=== PATIENT | female | born 1980 | race Caucasian/White ===

== ENCOUNTER 2017-11-12 12:29 | Emergency (ER) | payer BC ==
[~2017-11-12] VITALS: Ht 162.6 cm; Wt 104.3 kg
[2017-11-12] MEDS ORDERED: EFFEXOR XR37.5 MG PO (12:43)
[2017-11-12] MEDS ORDERED: NEURONTIN100 MG PO (12:44)
[2017-11-12] MEDS ORDERED: ATIVAN0.5 MG PO (12:44)
[2017-11-12 12:52] LABS: URINE BILIRUBIN NEGATIVE (Negative); URINE BLOOD NEGATIVE (Negative); URINE CLARITY CLEAR; URINE COLOR YELLOW; URINE GLUCOSE-RANDOM NEGATIVE (Negative); URINE KETONES NEGATIVE (Negative); URINE LEUKOCYTES-REFLEX NEGATIVE (Negative); URINE NITRITE-REFLEX NEGATIVE (Negative); URINE PROTEIN NEGATIVE (Negative); URINE SPECIFIC GRAVITY 1.015 (1.005-1.030); URINE UROBILINOGEN 0.2 E.U./dl (0.2-1.0)
[2017-11-12 12:59] LABS: AMP/METHAMP Negative (Negative); BARBITURATES Negative (Negative); BENZODIAZEPINES Negative (Negative); COCAINE Negative (Negative); METHADONE Negative (Negative); OPIATES Negative (Negative); PCP Negative (Negative); THC Negative (Negative)
[2017-11-12 13:09] LABS: ABSOLUTE BASOPHILS 0.1 thou/uL (0.0-0.2); ABSOLUTE EOSINOPHILS 0.2 thou/uL (0.0-0.7); ABSOLUTE LYMPHOCYTES 2.2 thou/uL (0.8-5.3); ABSOLUTE MONOCYTES 0.4 thou/uL (0.0-1.2); ABSOLUTE NEUTROPHILS 4.7 thou/uL (1.6-8.1); BASOPHILS 1.3 %; EOSINOPHILS 3.2 %; HEMATOCRIT 40.6 % (37.0-47.0); HEMOGLOBIN 13.3 gm/dL (12.0-15.0); MCH 29.8 pg (26.0-34.0); MCHC 32.8 g/dL (28.0-37.0); MCV 90.7 fL (80.0-100.0); MONOCYTES 5.6 %; MPV 9.2 fl. (7.2-11.1); NUCLEATED RBCS 0 /100WBC; PLATELET COUNT* 274 thou/uL (150-400); POLYS 60.9 %; RBC 4.47 mil/uL (4.20-5.00); RDW-CV 13.5 % (10.5-14.5); WBC 7.7 thou/uL (4.0-11.0)
[2017-11-12 13:15] LABS: CALCIUM 7.9 mg/dL (8.5-10.1); CREATININE 0.6 mg/dL (0.6-1.3); POTASSIUM 3.8 mmol/L (3.5-5.1)
[2017-11-12 13:20] LABS: ALBUMIN 3.3 g/dL (3.4-5.0); TOTAL BILIRUBIN 0.3 mg/dL (<0.1-1.0); TOTAL PROTEIN 6.8 g/dL (6.4-8.2)
[2017-11-12 13:23] LABS: ALCOHOL 12 mg/dL (<10); SALICYLATE 4.3 mg/dL (2.8-20.0)
[2017-11-12 13:24] LABS: ACETAMINOPHEN < 2 ug/mL (10-30)
[2017-11-12 15:52] VITALS: BP 131/72
== END 2017-11-12 15:53 | disposition home or self-care (01) ==
LOC: M.ERS 12:29
PROVIDERS: Emergency Medicine Emergency Medical Services
DX: F32.9 Major depressive disorder, single episode, unspecified (principal); F41.9 Anxiety disorder, unspecified; F17.210 Nicotine dependence, cigarettes, uncomplicated; Z88.5 Allergy status to narcotic agent

== ENCOUNTER 2018-02-06 09:01 | Emergency (ER) | payer BC ==
[~2018-02-06] VITALS: Ht 162.6 cm; Wt 99.8 kg
[~2018-02-06 09:01] MED LIST: ATIVAN0.5 MG PO; EFFEXOR XR37.5 MG PO; NEURONTIN100 MG PO
[2018-02-06] MEDS ORDERED: NAPROSYN500 MG PO (09:18)
[2018-02-06 09:44] LABS: ABSOLUTE BASOPHILS 0.1 thou/uL (0.0-0.2); ABSOLUTE EOSINOPHILS 0.3 thou/uL (0.0-0.7); ABSOLUTE LYMPHOCYTES 1.9 thou/uL (0.8-5.3); ABSOLUTE MONOCYTES 0.6 thou/uL (0.0-1.2); ABSOLUTE NEUTROPHILS 6.4 thou/uL (1.6-8.1); BASOPHILS 0.6 %; EOSINOPHILS 3.1 %; HEMATOCRIT 42.2 % (37.0-47.0); HEMOGLOBIN 14.1 gm/dL (12.0-15.0); LYMPHOCYTES 20.6 %; MCH 30.4 pg (26.0-34.0); MCHC 33.4 g/dL (28.0-37.0); MCV 90.9 fL (80.0-100.0); MONOCYTES 6.9 %; MPV 9.1 fl. (7.2-11.1); NUCLEATED RBCS 0 /100WBC; PLATELET COUNT* 280 thou/uL (150-400); POLYS 68.8 %; RBC 4.65 mil/uL (4.20-5.00); RDW-CV 13.7 % (10.5-14.5); WBC 9.3 thou/uL (4.0-11.0)
[2018-02-06 09:47] LABS: URINE BILIRUBIN NEGATIVE (Negative); URINE BLOOD NEGATIVE (Negative); URINE CLARITY CLEAR; URINE COLOR YELLOW; URINE GLUCOSE-RANDOM NEGATIVE (Negative); URINE KETONES NEGATIVE (Negative); URINE LEUKOCYTES-REFLEX NEGATIVE (Negative); URINE NITRITE-REFLEX NEGATIVE (Negative); URINE PROTEIN NEGATIVE (Negative); URINE SPECIFIC GRAVITY <= 1.005 (1.005-1.030); URINE UROBILINOGEN 0.2 E.U./dl (0.2-1.0)
[2018-02-06 09:49] LABS: CALCIUM 8.4 mg/dL (8.5-10.1); CREATININE 0.7 mg/dL (0.6-1.3)
[2018-02-06 09:53] LABS: ALBUMIN 3.8 g/dL (3.4-5.0); TOTAL BILIRUBIN 0.2 mg/dL (<0.1-1.0); TOTAL PROTEIN 7.7 g/dL (6.4-8.2)
[2018-02-06] MEDS ORDERED: ZOFRAN ODT4 MG SUBLING (11:06)
[2018-02-06] MEDS ORDERED: CIPROFLOXACIN500 M1 PO (11:06)
[2018-02-06] MEDS ORDERED: PREDNISONE 20 M20 M1 PO (11:06)
[2018-02-06] MEDS ORDERED: FLAGYL500 MG PO (11:06)
[2018-02-06 11:28] VITALS: BP 138/96
== END 2018-02-06 11:30 | disposition home or self-care (01) ==
LOC: M.ERS 09:01
PROVIDERS: Family Medicine
DX: K52.9 Noninfective gastroenteritis and colitis, unspecified (principal); F41.9 Anxiety disorder, unspecified; F32.9 Major depressive disorder, single episode, unspecified; F17.210 Nicotine dependence, cigarettes, uncomplicated; Z90.49 Acquired absence of other specified parts of digestive tract; Z88.5 Allergy status to narcotic agent

== ENCOUNTER 2018-02-07 20:01 | Inpatient (IN) | payer BC ==
[~2018-02-07] VITALS: Ht 162.6 cm; Wt 109.3 kg
--- NOTE | ~2018-02-07 | PROC ---
[address] [address] PROCEDURE REPORT Name: GEORGINA VALDES Room: [address] IN M.R.#: [id number] Admission: 02/07/18 Attend Phys: Michael Bell MD Discharge: 02/09/18 Date of : 82 Report #: [id number] THIS REPORT FOR: //name// For GI report, please see the Provation report in [employer] 7 content. By: [id number] Records Staff DIONNA /NISHANT
[~2018-02-07 20:01] MED LIST changes: +CIPROFLOXACIN500 M1 PO; +FLAGYL500 MG PO; +NAPROSYN500 MG PO; +PREDNISONE 20 M20 M1 PO; +ZOFRAN ODT4 MG SUBLING
[2018-02-07 20:03] VITALS: BP 172/105
[2018-02-07 21:24] LABS: HEMATOCRIT 40.9 % (37.0-47.0); HEMOGLOBIN 13.6 gm/dL (12.0-15.0); MCH 29.9 pg (26.0-34.0); MCHC 33.2 g/dL (28.0-37.0); NUCLEATED RBCS 0 /100WBC; PLATELET COUNT* 324 thou/uL (150-400); RBC 4.55 mil/uL (4.20-5.00); RDW-CV 13.3 % (10.5-14.5); WBC 12.5 thou/uL (4.0-11.0)
[2018-02-07 21:31] LABS: CALCIUM 8.6 mg/dL (8.5-10.1); CREATININE 0.9 mg/dL (0.6-1.3); POTASSIUM 3.9 mmol/L (3.5-5.1)
[2018-02-07 21:35] LABS: ALBUMIN 3.5 g/dL (3.4-5.0); TOTAL BILIRUBIN 0.2 mg/dL (<0.1-1.0); TOTAL PROTEIN 7.7 g/dL (6.4-8.2)
[2018-02-07 21:50] LABS: ABSOLUTE LYMPHOCYTES 1.8 thou/uL (0.8-5.3); ABSOLUTE MONOCYTES 0.4 thou/uL (0.0-1.2); ABSOLUTE NEUTROPHILS 10.4 thou/uL (1.6-8.1); PLATELET ESTIMATE ADEQUATE
[2018-02-08 01:30] VITALS: BP 152/84
[2018-02-08 02:05] VITALS: BP 137/88
[2018-02-08 08:45] VITALS: BP 149/79
[2018-02-08 10:12] LABS: ABSOLUTE BASOPHILS 0.1 thou/uL (0.0-0.2); ABSOLUTE EOSINOPHILS 0.2 thou/uL (0.0-0.7); ABSOLUTE LYMPHOCYTES 2.6 thou/uL (0.8-5.3); ABSOLUTE MONOCYTES 0.9 thou/uL (0.0-1.2); ABSOLUTE NEUTROPHILS 6.3 thou/uL (1.6-8.1); BASOPHILS 0.8 %; EOSINOPHILS 2.4 %; HEMATOCRIT 37.6 % (37.0-47.0); HEMOGLOBIN 12.2 gm/dL (12.0-15.0); LYMPHOCYTES 25.8 %; MCH 29.7 pg (26.0-34.0); MCHC 32.6 g/dL (28.0-37.0); MCV 91.3 fL (80.0-100.0); MONOCYTES 8.7 %; MPV 9.3 fl. (7.2-11.1); NUCLEATED RBCS 0 /100WBC; PLATELET COUNT* 279 thou/uL (150-400); POLYS 62.3 %; RBC 4.12 mil/uL (4.20-5.00); RDW-CV 13.5 % (10.5-14.5); WBC 10.1 thou/uL (4.0-11.0)
[2018-02-08 10:17] LABS: CALCIUM 7.9 mg/dL (8.5-10.1); CREATININE 0.8 mg/dL (0.6-1.3); MAGNESIUM 1.8 mg/dL (1.8-2.4); POTASSIUM 3.7 mmol/L (3.5-5.1)
[2018-02-08 15:35] VITALS: BP 154/89
[2018-02-08 21:15] VITALS: BP 149/91
[2018-02-09 00:16] VITALS: BP 125/81
[2018-02-09 04:32] LABS: HEMATOCRIT 36.1 % (37.0-47.0); HEMOGLOBIN 11.8 gm/dL (12.0-15.0); MCH 30.2 pg (26.0-34.0); MCHC 32.9 g/dL (28.0-37.0); MCV 91.9 fL (80.0-100.0); MPV 9.5 fl. (7.2-11.1); RBC 3.92 mil/uL (4.20-5.00); RDW-CV 13.8 % (10.5-14.5); WBC 7.8 thou/uL (4.0-11.0)
[2018-02-09 04:58] LABS: ALBUMIN 2.8 g/dL (3.4-5.0); CALCIUM 7.4 mg/dL (8.5-10.1); CREATININE 0.7 mg/dL (0.6-1.3); MAGNESIUM 1.9 mg/dL (1.8-2.4); POTASSIUM 4.2 mmol/L (3.5-5.1); TOTAL BILIRUBIN 0.3 mg/dL (<0.1-1.0)
[2018-02-09 07:45] VITALS: BP 134/70
[2018-02-09 08:05] VITALS: BP 125/81; BP 141/85
[2018-02-09 15:20] VITALS: BP 141/85
[2018-02-09 15:22] VITALS: BP 141/85
[2018-02-09 18:58] VITALS: BP 141/85
--- NOTE | 2018-02-13 11:10 | PATH ---
[address] [address] PATHOLOGY RPT PROCEDURE Name: CARLA VALDES Room: [address] IN M.R.#: [id number] Admission: 02/07/18 Date of : 82 Discharge: 02/09/18 Report #: [id number] Path Case #: [id number] [facility] Accession Number: [id number] . 01 Material submitted: . PART A: ASCENDING COLON PART B: TRANSVERSE COLON PART C: DESCENDING COLON . 01 Clinical history: . None provided . 02 Diagnosis: A. Ascending colon biopsy: - Minimal active colitis, negative for granulomas, viral inclusions and dysplasia. See comment. . B. Transverse colon biopsy: - Benign colonic mucosa with hyperplastic lymphoid follicle (Peyer's patch) and mild non-specific lymphoplasmacytic infiltrate, negative for cryptitis, granulomas and dysplasia. . C. Descending colon biopsy: - Minimal active colitis and hyperplastic lymphoid follicle (Peyer's patch), negative for granulomas, viral inclusions and dysplasia. See comment. LB/02/12/2018 . 02 Comment: All three of the colonic mucosal biopsies show a mild to modest increase of lymphoplasmacytic infiltrate in the lamina propria without significant basal lymphoplasmacytosis and with no crypt distortion to elevate a concern for inflammatory bowel disease. In the ascending and descending colon biopsies (A and C) there is minimal active inflammation evidenced by spotty cryptitis and a few neutrophils in the lamina propria, findings which could be attributable to oral sodium phosphate prep or use of non-steroidal anti-inflammatory agents. There is no significant intraepithelial lymphocytosis or thickening of the subluminal collagen plate to quality for lymphocytic (microscopic) or collagenous colitis. (CAROL/db; 02/12/18) . 02 Electronically signed: . Abdi Estrada MD, Pathologist NPI- [id number] . 01 Gross description: . A. Received in formalin labeled "Carla Valdes, ascending colon BX," is a single segment of hale soft tissue measuring 0.5 [place] [address] PATHOLOGY RPT PROCEDURE Name: CARLA VALDES Room: [address] IN M.R.#: [id number] Admission: 02/07/18 Date of : 82 Discharge: 02/09/18 Report #: [id number] Path Case #: [id number] The specimen is entirely submitted in cassette A1. . B. Received in formalin labeled "Magers, Carla, transverse colon BX," are 2 segments of hale soft tissue measuring 0.8 x 0.2 x 0.2 cm in aggregate dimensions and ranging from 0.3 to 0.5 cm in maximum dimension. The specimen is submitted entirely in cassette B1. . C. Received in formalin labeled "Magers, Carla, descending colon BX," are 2 segments of hale soft tissue measuring 0.7 x 0.2 x 0.1 cm in aggregate dimensions and ranging from 0.3 to 0.4 cm in maximum dimension. The specimen is submitted entirely in cassette C1. (TSD; 02/09/2018) TOB/TOB . 02 Pathologist provided ICD-10: K52.9 . 02 CPT . 412798, 818398, 223485 Specimen Comment: A courtesy copy of this report has been sent to Specimen Comment: [phone], . Specimen Comment: Report sent to / DR ARROYO Performed at: [address], [place] [id number] MD Vinnie Rojas MD Phone: [phone] Performed at: 02 [facility] [address], [place], [place] [id number] MD Abdi Estrada MD Phone: [phone]
--- NOTE | 2018-02-22 13:22 | CON ---
[address] [address] CONSULTATION Name: GEORGINA VALDES Room: [address] IN .R.#: [id number] Admission: 02/07/18 Attend Phys: Michael Bell MD Discharge: 02/09/18 Date of : 82 Report #: [id number] THIS REPORT FOR: //name// CC: Michael Bell [facility] physician/PCP DATE OF SERVICE: 02/08/2018 HISTORY OF PRESENT ILLNESS: This is a pleasant 37-year-old female with no significant past medical history, is presenting with abdominal pain and bloody diarrhea. The patient reports that the symptoms began 3 days back, at which time, she presented to the ER. At that time, she was given some IV fluids, steroids, and broad-spectrum antibiotics and discharged. The patient went back to work and noticed that the pain did not improve and as a matter of fact began worsening. At that time, she presented to the ER again. The patient reports that the symptoms began with lower abdominal pain. The pain was stabbing and sharp in nature and severe in intensity. This was followed by several episodes of bloody diarrhea. The pain then progressed to involve the right lower part of the abdomen with the same symptoms. The patient reports taking NSAIDs daily for the last month. She denies oral contraceptive use. She denies similar episodes in the past. PAST MEDICAL HISTORY: None significant. PAST SURGICAL HISTORY: None significant. FAMILY HISTORY: No family history of colorectal cancer. SOCIAL HISTORY: The patient denies smoking, alcohol or recreational drug use. REVIEW OF SYSTEMS: A comprehensive 10-point review of systems is negative except for what was mentioned in the HPI. PHYSICAL EXAMINATION: VITAL SIGNS: Temperature 36.4, pulse rate 68, respirations 16, blood pressure 154/ pulse ox 98% on room air. GENERAL: The patient is alert, awake, oriented x 3. Mucous membranes are moist. There is no congestion. HEENT: Pupils are equal, round, reactive to light and accommodation. NECK: Supple. There is no supraclavicular lymphadenopathy. LUNGS: Clear to auscultation. CARDIOVASCULAR: Rate and rhythm regular. S1, S2 present. ABDOMEN: Soft. There is tenderness in right lower quadrant suprapubic area, left lower quadrant and also in the epigastric region. There are no guarding or peritoneal signs. Bowel sounds are present. EXTREMITIES: Warm, well perfused[place] [address] CONSULTATION Name: GEORGINA VALDES Room: [address]#: [id number] Admission: 02/07/18 Attend Phys: Michael Bell MD Discharge: 02/09/18 Date of : 82 Report #: [id number] NEUROLOGIC: There is no focal neurological deficit. SKIN: Warm and dry. LABORATORY DATA: WBC count 12.5, hemoglobin 13.6, hematocrit 40.9, platelet count 324. Sodium 139, potassium 3.7, chloride 107, bicarbonate 25, BUN 16, creatinine 0.8. CT abdomen and pelvis, mild colitis involving ascending and transverse colon. Distal colon is not involved. ASSESSMENT AND PLAN: A 37-year-old female presenting with abdominal pain and bloody diarrhea for the last 3 days. Leading differential diagnoses include infectious, ischemic or inflammatory colitis. Clostridium difficile testing is pending. We will proceed with endoscopic evaluation tomorrow for diagnosis. Further recommendations based on above. I agree with broad-spectrum antibiotic coverage and IV fluids at this time. <ELECTRONICALLY SIGNED> By: Geovany Rain MD 02/22/18 1322 1630 10Geovany Rain MD /nt
== END 2018-02-09 15:45 | disposition home or self-care (01) | DRG 378 ==
LOC: M.ERS 20:01 → M.TBA-ER 22:51 → M.ORTHSURG 22:51
PROVIDERS: Internal Medicine; Nurse Practitioner Family; ADMIT Internal Medicine
PROC: 0DBL8ZX Excision of Transverse Colon, Via Natural or Artificial Opening Endoscopic, Diagnostic (ICD-10-PCS; principal; 2018-02-09)
PROC: 0DBK8ZX Excision of Ascending Colon, Via Natural or Artificial Opening Endoscopic, Diagnostic (ICD-10-PCS; principal; 2018-02-09)
PROC: 0DBM8ZX Excision of Descending Colon, Via Natural or Artificial Opening Endoscopic, Diagnostic (ICD-10-PCS; principal; 2018-02-09)
DX: K92.2 Gastrointestinal hemorrhage, unspecified (principal); R65.10 Systemic inflammatory response syndrome (SIRS) of non-infectious origin without acute organ dysfunction; D62 Acute posthemorrhagic anemia; K52.9 Noninfective gastroenteritis and colitis, unspecified; N83.201 Unspecified ovarian cyst, right side; F17.210 Nicotine dependence, cigarettes, uncomplicated; F41.1 Generalized anxiety disorder; F32.9 Major depressive disorder, single episode, unspecified; Z90.49 Acquired absence of other specified parts of digestive tract; Z79.899 Other long term (current) drug therapy; Z88.5 Allergy status to narcotic agent

== ENCOUNTER 2019-02-24 18:16 | Emergency (ER) | payer BC ==
[~2019-02-24] VITALS: Ht 162.6 cm; Wt 99.8 kg
[2019-02-24] MEDS ORDERED: PRISTIQ50 M1 PO (18:25)
[2019-02-24] MEDS ORDERED: METHOCARBAMOL500 M2 PO (18:25)
[2019-02-24] MEDS ORDERED: DESYREL150 MG PO (18:25)
[2019-02-24] MEDS ORDERED: IBUPROFEN 800800 M1 PO (20:13)
[2019-02-24 20:36] VITALS: BP 140/80
== END 2019-02-24 20:37 | disposition home or self-care (01) ==
LOC: M.ERS 18:16
DX: S93.492A Sprain of other ligament of left ankle, initial encounter (principal); F41.9 Anxiety disorder, unspecified; F32.9 Major depressive disorder, single episode, unspecified; Z90.49 Acquired absence of other specified parts of digestive tract; Z88.5 Allergy status to narcotic agent; X50.1XXA Overexertion from prolonged static or awkward postures, initial encounter; Y92.89 Other specified places as the place of occurrence of the external cause; Y93.89 Activity, other specified; Y99.8 Other external cause status